=== PATIENT | male | born 1975 | race Caucasian/White ===

== ENCOUNTER 2021-04-09 09:43 | Emergency (ER) | payer OTHER ==
[~2021-04-09] VITALS: Ht 172.7 cm; Wt 86.4 kg
[2021-04-09 09:57] VITALS: BP 157/105; Ht 172.7 cm; Wt 86.4 kg
[2021-04-09] MEDS ORDERED: OMEPRAZOLE20 M1 PO (09:58)
[2021-04-09] MEDS ORDERED: LISINOPRIL5 MG PO (09:58)
[2021-04-09] MEDS ORDERED: ACETAMINOPHEN500 M1 PO (11:25)
[2021-04-09] MEDS ORDERED: CYCLOBENZAPRINE10 MG PO (11:25)
[2021-04-09] MEDS ORDERED: IBUPROFEN800 MG PO (11:25)
== END 2021-04-09 11:50 | disposition home or self-care (01) ==
LOC: D.ER 09:43
DX: M25.552 Pain in left hip (principal); M79.662 Pain in left lower leg; S73.102A Unspecified sprain of left hip, initial encounter